=== PATIENT | male | born 1975 | race Two or more races ===

== ENCOUNTER 2022-12-07 20:57 | Inpatient (IN) | payer MEDICAID, SELFPAY ==
--- NOTE | ~2022-12-07 | XR_ITS ---
EXAMINATION: XR CHEST CLINICAL INFORMATION: Shortness of breath with rhonchi COMPARISON: January 28, 2019 TECHNIQUE: AP portable view of the chest was obtained. FINDINGS: No significant abnormality is noted involving the heart, lungs, mediastinum, bony thorax or soft tissues. XR/XR chest 1V IMPRESSION: No acute disease.
[2022-12-07 21:30] VITALS: BMI 25.8
[2022-12-07 22:31] LABS: Glucose, Whole Blood 139 mg/dL (60-115)
[2022-12-07] MEDS: hydrOXYzine HCL 25 MG TABLET PO (23:26)
[2022-12-07] MEDS: traZODone HCL 50 MG TABLET PO (23:26)
[2022-12-07] MEDS: Nicotine Polacrilex 2 MG GUM 4 MG BUCCAL (23:29)
[2022-12-08] MEDS: traZODone HCL 50 MG TABLET PO ×2 (00:25→20:35)
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
[2022-12-08 08:03] LABS: Glucose, Whole Blood 113 mg/dL (60-115)
[2022-12-08] MEDS: Folic Acid 1 MG TABLET PO (08:43)
[2022-12-08] MEDS: Nicotine 21 MG PATCH.TD24 TRANSDERMA (08:43)
[2022-12-08] MEDS: Multivitamin TABLET 1 TAB PO (08:44)
[2022-12-08] MEDS: Thiamine HCL 100 MG TABLET PO (08:44)
[2022-12-08 09:00] LABS: Alanine Aminotransferase 40 U/L (0-40); Albumin Level 3.9 g/dL (3.5-5.0); Alkaline Phosphatase 100 U/L (39-117); Anion Gap 13 (12-20); Aspartate Amino Transferase 25 U/L (5-37); Bilirubin Total 0.4 mg/dL (0.0-1.0); Blood Urea Nitrogen 18 mg/dL (9-16); Calcium 9.3 mg/dL (8.4-10.2); Carbon Dioxide 28 mmol/L (22-29); Chloride 103 mmol/L (96-108); Creatinine Clr Calc Pharmacy 93.5; Estimated Glomerular Filt Rate > 60; Glucose Fasting 102 mg/dL (60-99); Potassium 4.6 mmol/L (3.3-5.1); Sodium 139 mmol/L (135-145); Total Protein 6.8 g/dL (6.5-8.0)
[2022-12-08] MEDS: methADONE HCl 20 MG/2 ML ORAL.CONC 70 MG PO (09:28)
[2022-12-08 09:48] VITALS: BP 136/87; PULSE 71; RESP 18; TEMP 36.8; O2SAT 100
--- NOTE | 2022-12-08 12:13 | HO.PM.IMCN ---
History of Present Illness Data of Consult Service Date: 12/08/22 Requesting physician: Lizette Morrell Primary Care Provider: Montserrat Chen MD HPI Reason for consult: medical H&P 47 year old male with history of insulin dependent type 2 diabetes, htn, polysubstance abuse, hx treated hepatitis c, latent tuberculosis treated with isoniazid, migraines, and depression/anxiety who is a current 0.5ppd cigarette smoker admitted to psychiatry with consult placed to hospitalist service for medical H&P. Last inh heroin and cocaine use was 3 days ago. He is reporting h/a, lightheadedness, and diffuse pain. He is on methadone 70mg. He is also reporting occasional nonproductive cough and shortness of breath, states this has been long standing. No fevers, chills, sore throat, congestion, chest pain. No sick contacts. No history asthma/copd known. Review of Systems Review of Systems: Yes all other systems are reviewed and are negative [facility] Medical History History of hepatitis C History of latent tuberculosis HTN (hypertension) Type 2 diabetes mellitus Social History Household Members: None Housing: Apartment Do you presently have visiting nurse or other home services: No (I rent a room in a house) Patient Tobacco Use Status: Current everyday Tobacco user Tobacco use type: Cigarette Cigarette Packs Per Day: 1 Cigarettes Per Day: 20 Smoked in Last 30 Days: Yes e-Cigarette/Vaping Use: Never Used Patient Interested in Nicotine Replacement: Yes Patient Given Instructions on How to Stop Smoking: Yes (he is intrested in smoking cessation) Date Education Initiated: 12/07/22 Second Hand Smoke Exposure: Yes Use of substances other than those prescribed or required for medical reasons: Yes Substance Use Type: Crack/Cocaine, Heroin, IV Drugs, Marijuana, Other and Caffiene Substance Use Type Other:: benzos Substance Use Frequency: Daily Last Used Substance: Days (ago) Currently Displaying Signs/Symptoms of Drug Intoxication Withdrawal: Yes Any prior treatment program specific to substance use: Yes ([facility] 70 mg daily) Have you been hit, kicked, punched, or otherwise hurt by someone within the past year? If so, by whom?: No Do you feel safe in your current relationship?: No Current Relationship Is there a partner from a previous relationship who is making you feel unsafe now?: No Are you made to feel afraid or neglected: No Advance Directives: No Advance Directives Information Provided: No Do you have thoughts of harming others: None Do you have a plan to hurt others: No Plan Recently lost weight without trying: Yes How much weight loss: 24-33 pounds Eating poorly because of decreased appetite: Yes Nutrition screen score: 6 Poor oral hygiene: No service: No Sexual orientation: Straight/Heterosexual Meds Allergies Allergy/AdvReac Type Severity Reaction Status Date / Time fish derived [FISH] Allergy Intermediate SWOLLEN Unverified 04/30/20 16:57 LIPS,ITCHY EYES quetiapine [Seroquel] Allergy Unknown Verified 02/18/19 00:00 fish Allergy Unknown Uncoded 02/18/19 00:00 Active Medications: Current Medications Acetaminophen (Acetaminophen 325 Mg Tablet) 650 mg PO Q6H PRN PRN Reason: Headache/Pain Mild Scale (1-3) Al Hydroxide/Mg Hydroxide (Magnesium Hydrox/Alum Hydrox 30 Ml Oral.Susp) 30 ml PO Q6H PRN PRN Reason: Heartburn/Nausea Folic Acid (Folic Acid 1 Mg Tablet) 1 mg PO DAILY [facility] Last Admin: 12/08/22 08:43 Dose: 1 mg Hydroxyzine HCl (Hydroxyzine Hcl 25 Mg Tablet) 25 mg PO Q6H PRN PRN Reason: Anxiety Last Admin: 12/07/22 23:26 Dose: 25 mg Insulin Human Lispro (Insulin Lispro 100 Unit/Ml 3 Ml Vial) 0 unit SUBCUT QIDAS [facility]; Protocol Last Admin: 12/08/22 08:45 Dose: Not Given Lorazepam (Lorazepam 1 Mg Tablet) 1 mg PO Q2H PRN PRN Reason: CIWA 6-10 Lorazepam (Lorazepam 1 Mg Tablet) 2 mg PO Q2H PRN PRN Reason: CIWA 11 and above Magnesium Hydroxide (Milk Of Magnesia 30 Ml Oral.Susp) 30 ml PO DAILY PRN PRN Reason: Constipation Methadone HCl (Methadone Hcl 20 Mg/2 Ml Oral.Conc) 70 mg PO DAILY [facility] Last Admin: 12/08/22 09:28 Dose: 70 mg Multivitamins/Vitamin C (Multivitamin Tablet) 1 tab PO DAILY [facility] Last Admin: 12/08/22 08:44 Dose: 1 tab Nicotine (Nicotine 21 Mg Patch.Td24) 21 mg TRANSDERMA DAILY [facility] Last Admin: 12/08/22 08:43 Dose: 21 mg Nicotine Polacrilex (Nicotine Polacrilex 2 Mg Gum) 4 mg BUCCAL Q2H PRN PRN Reason: Nicotine Cravings Last Admin: 12/07/22 23:29 Dose: 4 mg Thiamine HCl (Thiamine Hcl 100 Mg Tablet) 100 mg PO DAILY [facility] Last Admin: 12/08/22 08:44 Dose: 100 mg Trazodone HCl (Trazodone Hcl 50 Mg Tablet) 50 mg PO BEDTIME MRX1 PRN PRN Reason: Insomnia Last Admin: 12/08/22 00:25 Dose: 50 mg Home Medications Medication Instructions Recorded Confirmed Last Taken Type Descovy mg PO DAILY 12/08/22 Unknown History Levemir FlexPen 30 units BIDAC 12/08/22 12/08/22 Unknown History Vitamin B-6 PO DAILY 12/08/22 Unknown History metformin 1,000 mg PO DAILY 12/08/22 12/08/22 Unknown History Physical Exam Vital Signs and Narrative: Vital Signs: Last Vital Signs Temp 98.3 F 12/08/22 09:48 Pulse 71 12/08/22 09:48 Resp 18 12/08/22 09:48 BP 136/87 12/08/22 09:48 Pulse Ox 100 12/08/22 09:48 O2 Del Method Room Air 12/08/22 09:48 BMI result Body Mass Index 25.8 Constitutional - Awake and Alert, No apparent distress Eyes - PERRLA, EOMI Cardiovascular - S1S2, RRR, No edema Respiratory - Normal lung expansion, Normal respiratory effort, No respiratory distress, diffuse rhonchi and expiratory wheezing bilaterally Gastrointestinal - NT / ND; +BS; No rebound or guarding Extremities - no calf tenderness bilaterally, no swelling Musculoskeletal - Normal inspection, normal ROM Skin - Warm/Dry Neurological - Alert & oriented x3, CN II-XII in tact, 5/5 strength BUE and BLE Psychological - Appropriate affect Results Labs 12/08/22 08:21 Labs: Laboratory Results - last 24 hr 12/07/22 12/08/22 12/08/22 22:27 07:58 08:21 Anion Gap 13 Estim Creat Clear Calc 93.5 Estimated GFR > 60 POC Glucose 139 H 113 Fasting Glucose 102 H Calcium 9.3 Total Bilirubin 0.4 AST 25 ALT 40 Alkaline Phosphatase 100 Total Protein 6.8 Albumin 3.9 Assessment and Plan (1) Routine medical exam: Status: Acute Plan 47 year old male with history of insulin dependent type 2 diabetes, htn, polysubstance abuse, hx treated hepatitis c, latent tuberculosis treated with isoniazid, migraines, and depression/anxiety who is a current 0.5ppd cigarette smoker admitted to psychiatry with consult placed to hospitalist service for medical H&P. #Mood disorder/psychosis -plan per psychiatry #Substance use -plan per psychiatry #Headaches/migraine -tylenol, fioricet prn #Type 2 diabetes- controlled -continue home metformin and basal insulin -check poc's, diabetic diet recommened, humalog on sliding scale #Shortness of breath/cough -Longstanding. Suspect undiagnosed asthma vs COPD (smoking history) -Viral resp panel ordered -Check CXR -Albuterol prn -symptomatic management -outpt follow for PFTs #HTN -BP reasonably controlled, continue monitoring #HIV prophylaxis -Has not seen Dr. Lebron in [place] since last year -Pt denies taking descovy at this time. Will hold medication and he can follow up outpt. Will continue following for results. Time Spent With Patient Time: Total time managing care of this patient today ____ minutes.
[2022-12-08 12:15] LABS: Glucose, Whole Blood 127 mg/dL (60-115)
[2022-12-08 12:16] VITALS: BMI 26.1
[2022-12-08] MEDS: LORazepam 1 MG TABLET PO ×2 (12:54→16:38)
[2022-12-08] MEDS: Acetaminophen 325 MG TABLET 650 MG PO (12:57)
[2022-12-08] MEDS: HaloperidoL 5 MG TABLET PO ×2 (13:12→20:35)
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
[2022-12-08 15:04] VITALS: BP 137/87; PULSE 80; RESP 18; O2SAT 98
[2022-12-08] MEDS: cloNIDine HCL 0.1 MG TABLET PO ×2 (15:05→20:35)
[2022-12-08 17:30] LABS: Glucose, Whole Blood 113 mg/dL (60-115)
[2022-12-08 20:31] LABS: Glucose, Whole Blood 130 mg/dL (60-115)
[2022-12-08] MEDS: Insulin Glargine,Hum.rec.anlog 100 UNIT/ML 10 ML VIAL 21 UNIT SUBCUT (20:33)
[2022-12-08] MEDS: LORazepam 1 MG TABLET 2 MG PO (20:35)
[2022-12-08] MEDS: hydrOXYzine HCL 25 MG TABLET PO (20:36)
[2022-12-08 20:41] VITALS: BP 140/95; PULSE 74; RESP 16; TEMP 36.6; O2SAT 100
[2022-12-09] MEDS: Nicotine 21 MG PATCH.TD24 TRANSDERMA (08:20)
[2022-12-09] MEDS: cloNIDine HCL 0.1 MG TABLET PO ×2 (08:21→14:28)
[2022-12-09] MEDS: Folic Acid 1 MG TABLET PO (08:21)
[2022-12-09] MEDS: HaloperidoL 5 MG TABLET PO ×3 (08:21→21:46)
[2022-12-09] MEDS: Insulin Glargine,Hum.rec.anlog 100 UNIT/ML 10 ML VIAL 21 UNIT SUBCUT ×2 (08:22→21:48)
[2022-12-09] MEDS: methADONE HCl 20 MG/2 ML ORAL.CONC 70 MG PO (08:22)
[2022-12-09] MEDS: Multivitamin TABLET 1 TAB PO (08:22)
[2022-12-09] MEDS: Thiamine HCL 100 MG TABLET PO (08:22)
[2022-12-09] MEDS: metFORMIN HCl ER 500 MG TAB.ER.24H 1000 MG PO (08:22)
[2022-12-09 08:31] LABS: Glucose, Whole Blood 134 mg/dL (60-115)
[2022-12-09 08:36] VITALS: BP 165/90; PULSE 56; RESP 18; TEMP 36.5; O2SAT 98
[2022-12-09 11:18] LABS: Adenovirus PCR Not Detected (Not Detect.); Bordetella parapertussis PCR Not Detected (Not Detect.); Bordetella pertussis PCR Not Detected (Not Detect.); Chlamydia pneumoniae PCR Not Detected (Not Detect.); Coronavirus 229E PCR Not Detected (Not Detect.); Coronavirus HKU1 PCR Not Detected (Not Detect.); Coronavirus NL63 PCR Not Detected (Not Detect.); Coronavirus OC43 PCR Not Detected (Not Detect.); Human metapneumovirus PCR Detected (Not Detect.); Influenza A PCR Not Detected (Not Detect.); Influenza B PCR Not Detected (Not Detect.); Mycoplasma pneumoniae PCR Not Detected (Not Detect.); Parainfluenza 1 PCR Not Detected (Not Detect.); Rhino/Enterovirus PCR Not Detected (Not Detect.); SARS-CoV-2 PCR Not Detected (Not Detect.)
[2022-12-09 11:19] LABS: Parainfluenza 2 PCR Not Detected (Not Detect.); Parainfluenza 3 PCR Not Detected (Not Detect.); Parainfluenza 4 PCR Not Detected (Not Detect.); RSV PCR Not Detected (Not Detect.)
[2022-12-09 13:29] LABS: Glucose, Whole Blood 134 mg/dL (60-115)
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
[2022-12-09 17:29] LABS: Glucose, Whole Blood 114 mg/dL (60-115)
[2022-12-09] MEDS: Acetaminophen 325 MG TABLET 975 MG PO (17:51)
[2022-12-09] MEDS: Albuterol Sulfate 90 MCG 8 GM INHALER 2 PUFF INHALE (17:52)
[2022-12-09 21:20] VITALS: BP 143/87; PULSE 88; RESP 18; TEMP 36.1; O2SAT 97
[2022-12-09 21:33] LABS: Glucose, Whole Blood 183 mg/dL (60-115)
[2022-12-09] MEDS: traZODone HCL 50 MG TABLET PO ×2 (21:46→23:09)
[2022-12-09] MEDS: cloNIDine HCL 0.2 MG TABLET PO (21:46)
[2022-12-09] MEDS: Insulin Lispro 100 UNIT/ML 3 ML VIAL SUBCUT (21:48)
[2022-12-09] MEDS: hydrOXYzine HCL 25 MG TABLET PO (23:09)
[2022-12-10 08:38] LABS: Glucose, Whole Blood 193 mg/dL (60-115)
[2022-12-10 09:10] VITALS: BP 139/83; PULSE 75; RESP 18; TEMP 36.6; O2SAT 99
[2022-12-10] MEDS: metFORMIN HCl ER 500 MG TAB.ER.24H 1000 MG PO (09:21)
[2022-12-10] MEDS: Multivitamin TABLET 1 TAB PO (09:22)
[2022-12-10] MEDS: HaloperidoL 5 MG TABLET PO ×3 (09:22→21:16)
[2022-12-10] MEDS: Folic Acid 1 MG TABLET PO (09:22)
[2022-12-10] MEDS: Thiamine HCL 100 MG TABLET PO (09:22)
[2022-12-10] MEDS: Nicotine 21 MG PATCH.TD24 TRANSDERMA (09:23)
[2022-12-10] MEDS: cloNIDine HCL 0.1 MG TABLET PO ×2 (09:23→14:47)
[2022-12-10] MEDS: methADONE HCl 20 MG/2 ML ORAL.CONC 70 MG PO (09:24)
[2022-12-10] MEDS: Insulin Glargine,Hum.rec.anlog 100 UNIT/ML 10 ML VIAL 21 UNIT SUBCUT ×2 (09:36→21:19)
[2022-12-10] MEDS: Insulin Lispro 100 UNIT/ML 3 ML VIAL SUBCUT ×3 (09:37→21:19)
--- NOTE | 2022-12-10 11:06 | PC.NURSE ---
Erik consulted via [place] Text re: duration of isolation/droplet precautions. Per Nate Marroquin, precautions only need to be maintained for duration of symptoms. Patient denies any symptoms at this time. Precautions resolved, MD notified.
[2022-12-10 12:58] LABS: Glucose, Whole Blood 169 mg/dL (60-115)
[2022-12-10] MEDS: Acetaminophen 325 MG TABLET 975 MG PO (12:59)
--- NOTE | 2022-12-10 13:31 | PC.NURSE ---
Patient scoring very low on CIWA score, Dr. Muse notified, TAYA d/c per .
[2022-12-10 14:40] VITALS: BP 125/83; PULSE 81; RESP 20; O2SAT 99
--- NOTE | 2022-12-10 16:16 | HO.PSYCHPN ---
Subjective Subjective Date of Service: 12/10/22 Reason For Visit: Stimulant use d/o, unspecified depressive d/o Interim History: calm, cooperative. reports ongoing AH, mild POLK. sleep not great, agrees to increase HS clonidine to 0.3 mg. per staff, off infection precautions. anx 7. mild POLK. reporting AVH. slept yesterday and then again overnight. FSBS 193. Mental Status Exam Mental Status Exam Narrative: calm, cooperative. tattoos on neck and arms. dressed in hospital attire. cooperative. speech nml loudness, decr amount, incr latency. thoughts linear and logical without evidence of delusions or paranoia. affect constricted, normo-intense, non-labile. mood anxious and depressed. endorses AH. no SI/HI/VH expressed. Diagnostics Vital Signs (24Hr): Vital Signs - 24 hr 12/09/22 21:20 12/10/22 09:10 12/10/22 14:40 Temperature 97.0 F 97.8 F Pulse Rate 88 75 81 Respiratory Rate 18 18 20 Blood Pressure 143/87 H 139/83 125/83 Pulse Oximetry 97 99 99 Oxygen Delivery Method Room Air Room Air Room Air BMI result Body Mass Index 26.1 Labs 12/08/22 08:21 Labs: Laboratory Results - last 48 hr 12/08/22 12/08/22 12/08/22 16:25 17:25 20:25 POC Glucose 113 130 H Respiratory Panel Taylor See Note Adenovirus (Rapid PCR) Not Detected B.pert (TEM-PCR) Not Detected B.parapertussis DNA PCR Not Detected C. pneumoniae DNA (PCR) Not Detected Coronavirus OC43 (PCR) Not Detected Coronavirus HKU1 (PCR) Not Detected Coronavirus 229E (PCR) Not Detected Coronavirus NL63 (PCR) Not Detected Human Metapneumovir PCR Detected A Influenza A (RT-PCR) Not Detected Influenza B (RT-PCR) Not Detected M. pneumoniae (PCR) Not Detected Parainfluenza 1 (PCR) Not Detected Parainfluenza 2 (PCR) Not Detected Parainfluenza 3 (PCR) Not Detected Parainfluenza 4 (PCR) Not Detected RSV (PCR) Not Detected Entero/Rhino (PCR) Not Detected SARS-CoV-2 RNA (RT-PCR) Not Detected 12/09/22 12/09/22 12/09/22 08:19 13:24 17:25 POC Glucose 134 H 134 H 114 Respiratory Panel Taylor Adenovirus (Rapid PCR) B.pert (TEM-PCR) B.parapertussis DNA PCR C. pneumoniae DNA (PCR) Coronavirus OC43 (PCR) Coronavirus HKU1 (PCR) Coronavirus 229E (PCR) Coronavirus NL63 (PCR) Human Metapneumovir PCR Influenza A (RT-PCR) Influenza B (RT-PCR) M. pneumoniae (PCR) Parainfluenza 1 (PCR) Parainfluenza 2 (PCR) Parainfluenza 3 (PCR) Parainfluenza 4 (PCR) RSV (PCR) Entero/Rhino (PCR) SARS-CoV-2 RNA (RT-PCR) 12/09/22 12/10/22 12/10/22 21:24 08:33 12:54 POC Glucose 183 H 193 H 169 H Respiratory Panel Taylor Adenovirus (Rapid PCR) B.pert (TEM-PCR) B.parapertussis DNA PCR C. pneumoniae DNA (PCR) Coronavirus OC43 (PCR) Coronavirus HKU1 (PCR) Coronavirus 229E (PCR) Coronavirus NL63 (PCR) Human Metapneumovir PCR Influenza A (RT-PCR) Influenza B (RT-PCR) M. pneumoniae (PCR) Parainfluenza 1 (PCR) Parainfluenza 2 (PCR) Parainfluenza 3 (PCR) Parainfluenza 4 (PCR) RSV (PCR) Entero/Rhino (PCR) SARS-CoV-2 RNA (RT-PCR) Imaging Radiology Impressions: ITS Impressions Chest X-Ray 12/08/22 14:15 IMPRESSION: No acute disease. Medications Medications Current Medications Acetaminophen (Acetaminophen 325 Mg Tablet) 975 mg PO Q6H PRN PRN Reason: Headache/Pain Mild Scale (1-3) Last Admin: 12/10/22 12:59 Dose: 975 mg Al Hydroxide/Mg Hydroxide (Magnesium Hydrox/Alum Hydrox 30 Ml Oral.Susp) 30 ml PO Q6H PRN PRN Reason: Heartburn/Nausea Albuterol Sulfate (Albuterol Sulfate 90 Mcg 8 Gm Inhaler) 2 puff INHALE RQ4H PRN PRN Reason: Shortness of Breath/Wheezing Last Admin: 12/09/22 17:52 Dose: 2 puff Clonidine HCl (Clonidine Hcl 0.1 Mg Tablet) 0.1 mg PO BID@0900,1500 [facility]; Protocol Last Admin: 12/10/22 14:47 Dose: 0.1 mg Clonidine HCl (Clonidine Hcl 0.1 Mg Tablet) 0.3 mg PO BEDTIME [facility]; Protocol Folic Acid (Folic Acid 1 Mg Tablet) 1 mg PO DAILY [facility] Last Admin: 12/10/22 09:22 Dose: 1 mg Haloperidol (Haloperidol 5 Mg Tablet) 5 mg PO TID PRN PRN Reason: psychotic symptoms Last Admin: 12/10/22 12:59 Dose: 5 mg Haloperidol (Haloperidol 5 Mg Tablet) 5 mg PO BID [facility] Last Admin: 12/10/22 09:22 Dose: 5 mg Hydroxyzine HCl (Hydroxyzine Hcl 25 Mg Tablet) 25 mg PO Q6H PRN PRN Reason: Anxiety Last Admin: 12/09/22 23:09 Dose: 25 mg Insulin Glargine (Insulin Glargine,Hum.Rec.Anlog 100 Unit/Ml 10 Ml Vial) 21 unit SUBCUT BID [facility] Last Admin: 12/10/22 09:36 Dose: 21 unit Insulin Human Lispro (Insulin Lispro 100 Unit/Ml 3 Ml Vial) 0 unit SUBCUT QIDACHS [facility]; Protocol Last Admin: 12/10/22 13:13 Dose: 2 unit Lorazepam (Lorazepam 1 Mg Tablet) 1 mg PO Q2H PRN PRN Reason: CIWA 6-10 Last Admin: 12/08/22 16:38 Dose: 1 mg Lorazepam (Lorazepam 1 Mg Tablet) 2 mg PO Q2H PRN PRN Reason: CIWA 11 and above Last Admin: 12/08/22 20:35 Dose: 2 mg Magnesium Hydroxide (Milk Of Magnesia 30 Ml Oral.Susp) 30 ml PO DAILY PRN PRN Reason: Constipation Metformin HCl (Metformin Hcl Er 500 Mg Tab.Er.24h) 1,000 mg PO DAILY [facility] Last Admin: 12/10/22 09:21 Dose: 1,000 mg Methadone HCl (Methadone Hcl 20 Mg/2 Ml Oral.Conc) 70 mg PO DAILY [facility] Last Admin: 12/10/22 09:24 Dose: 70 mg Multivitamins/Vitamin C (Multivitamin Tablet) 1 tab PO DAILY [facility] Last Admin: 12/10/22 09:22 Dose: 1 tab Nicotine (Nicotine 21 Mg Patch.Td24) 21 mg TRANSDERMA DAILY [facility] Last Admin: 12/10/22 09:23 Dose: 21 mg Nicotine Polacrilex (Nicotine Polacrilex 2 Mg Gum) 4 mg BUCCAL Q2H PRN PRN Reason: Nicotine Cravings Last Admin: 12/07/22 23:29 Dose: 4 mg Thiamine HCl (Thiamine Hcl 100 Mg Tablet) 100 mg PO DAILY [facility] Last Admin: 12/10/22 09:22 Dose: 100 mg Trazodone HCl (Trazodone Hcl 50 Mg Tablet) 50 mg PO BEDTIME MRX1 PRN PRN Reason: Insomnia Last Admin: 12/09/22 23:09 Dose: 50 mg Allergies Allergies Allergy/AdvReac Type Severity Reaction Status Date / Time fish derived [FISH] Allergy Intermediate SWOLLEN Unverified 04/30/20 16:57 LIPS,ITCHY EYES quetiapine [Seroquel] Allergy Unknown Verified 02/18/19 00:00 fish Allergy Unknown Uncoded 02/18/19 00:00 Assessment & Plan Assessment & Plan (1) Polysubstance use disorder: Status: Acute Code(s): F19.90 - Other psychoactive substance use, unspecified, uncomplicated (2) Depressive disorder: Status: Acute Code(s): F32.A - Depression, unspecified Plan 12/08: start haldol 5 mg BID with PRN dosing available. start clonidine 0.1 TID. 12/09: increase HS clonidine to 0.2 mg for sleep. encouraged to use PRN haldol dosing. 12/10: increase HS clonidine to 0.3 mg for sleep. encouraged to use PRN haldol dosing. Reason for continued inpatient stay Substantial Risk for: harm to self, inability to function and rapid decompensation Time Spent With Patient Time: Total time managing care of this patient today ____ minutes.
[2022-12-10 17:45] LABS: Glucose, Whole Blood 148 mg/dL (60-115)
[2022-12-10 21:05] VITALS: BP 137/86; PULSE 75; RESP 18; TEMP 36.1; O2SAT 99
[2022-12-10 21:12] LABS: Glucose, Whole Blood 196 mg/dL (60-115)
[2022-12-10] MEDS: traZODone HCL 50 MG TABLET PO (21:16)
[2022-12-10] MEDS: cloNIDine HCL 0.1 MG TABLET 0.3 MG PO (21:16)
[2022-12-10] MEDS: hydrOXYzine HCL 25 MG TABLET PO ×2 (21:16→23:02)
[2022-12-11 08:25] VITALS: BP 114/67; PULSE 70; RESP 18; TEMP 36.7; O2SAT 98
[2022-12-11 08:25] LABS: Glucose, Whole Blood 176 mg/dL (60-115)
[2022-12-11] MEDS: Multivitamin TABLET 1 TAB PO (08:34)
[2022-12-11] MEDS: cloNIDine HCL 0.1 MG TABLET PO ×2 (08:34→15:04)
[2022-12-11] MEDS: Thiamine HCL 100 MG TABLET PO (08:34)
[2022-12-11] MEDS: HaloperidoL 5 MG TABLET PO ×4 (08:35→23:23)
[2022-12-11] MEDS: Folic Acid 1 MG TABLET PO (08:35)
[2022-12-11] MEDS: metFORMIN HCl ER 500 MG TAB.ER.24H 1000 MG PO (08:35)
[2022-12-11] MEDS: methADONE HCl 20 MG/2 ML ORAL.CONC 70 MG PO (08:36)
[2022-12-11] MEDS: Insulin Lispro 100 UNIT/ML 3 ML VIAL SUBCUT (09:10)
[2022-12-11] MEDS: Nicotine 21 MG PATCH.TD24 TRANSDERMA (09:10)
[2022-12-11] MEDS: Insulin Glargine,Hum.rec.anlog 100 UNIT/ML 10 ML VIAL 21 UNIT SUBCUT ×2 (09:11→21:09)
[2022-12-11 12:08] LABS: Glucose, Whole Blood 91 mg/dL (60-115)
[2022-12-11] MEDS: hydrOXYzine HCL 25 MG TABLET PO ×2 (12:22→23:23)
--- NOTE | 2022-12-11 16:24 | P.PNPSI_ITS ---
Subjective Subjective Date of Service: 12/11/22 Reason For Visit: Stimulant use d/o, unspecified depressive d/o Interim History: pt reports ongoing AH, flashes. mood a little better and POLK improved. c/o anxiety. agrees to increase scheduled haldol to 5 mg TID. c/o MNA. agrees to start trazodone 100 at HS. per staff, racing thoughts. sleeping improving. anx/dep 12/21. +AH. FSBS 176, 91. Mental Status Exam Mental Status Exam Narrative: calm, cooperative. tattoos on neck and arms. dressed in hospital attire. cooperative. speech nml loudness, decr amount, incr latency. thoughts linear and logical without evidence of delusions or paranoia. affect constricted, normo-intense, non-labile. mood anxious and depressed, but a little better. endorses AH. no SI/HI/VH expressed. Diagnostics Vital Signs (24Hr): Vital Signs - 24 hr 12/10/22 21:05 12/11/22 08:25 Temperature 97.0 F 98.1 F Pulse Rate 75 70 Respiratory Rate 18 18 Blood Pressure 137/86 114/67 Pulse Oximetry 99 98 Oxygen Delivery Method Room Air Room Air BMI result Body Mass Index 26.1 Labs 12/08/22 08:21 Labs: Laboratory Results - last 48 hr 12/09/22 12/09/22 12/10/22 17:25 21:24 08:33 POC Glucose 114 183 H 193 H 12/10/22 12/10/22 12/10/22 12:54 17:40 21:06 POC Glucose 169 H 148 H 196 H 12/11/22 12/11/22 08:21 12:04 POC Glucose 176 H 91 Imaging Radiology Impressions: ITS Impressions Chest X-Ray 12/08/22 14:15 IMPRESSION: No acute disease. Medications Medications Current Medications Acetaminophen (Acetaminophen 325 Mg Tablet) 975 mg PO Q6H PRN PRN Reason: Headache/Pain Mild Scale (1-3) Last Admin: 12/10/22 12:59 Dose: 975 mg Al Hydroxide/Mg Hydroxide (Magnesium Hydrox/Alum Hydrox 30 Ml Oral.Susp) 30 ml PO Q6H PRN PRN Reason: Heartburn/Nausea Albuterol Sulfate (Albuterol Sulfate 90 Mcg 8 Gm Inhaler) 2 puff INHALE RQ4H PRN PRN Reason: Shortness of Breath/Wheezing Last Admin: 12/09/22 17:52 Dose: 2 puff Clonidine HCl (Clonidine Hcl 0.1 Mg Tablet) 0.1 mg PO BID@0900,1500 [facility]; Protocol Last Admin: 12/11/22 15:04 Dose: 0.1 mg Clonidine HCl (Clonidine Hcl 0.1 Mg Tablet) 0.3 mg PO BEDTIME [facility]; Protocol Last Admin: 12/10/22 21:16 Dose: 0.3 mg Folic Acid (Folic Acid 1 Mg Tablet) 1 mg PO DAILY [facility] Last Admin: 12/11/22 08:35 Dose: 1 mg Haloperidol (Haloperidol 5 Mg Tablet) 5 mg PO TID PRN PRN Reason: psychotic symptoms Last Admin: 12/11/22 13:34 Dose: 5 mg Haloperidol (Haloperidol 5 Mg Tablet) 5 mg PO TID [facility] Hydroxyzine HCl (Hydroxyzine Hcl 25 Mg Tablet) 25 mg PO Q6H PRN PRN Reason: Anxiety Last Admin: 12/11/22 12:22 Dose: 25 mg Insulin Glargine (Insulin Glargine,Hum.Rec.Anlog 100 Unit/Ml 10 Ml Vial) 21 unit SUBCUT BID [facility] Last Admin: 12/11/22 09:11 Dose: 21 unit Insulin Human Lispro (Insulin Lispro 100 Unit/Ml 3 Ml Vial) 0 unit SUBCUT QIDACHS [facility]; Protocol Last Admin: 12/11/22 12:25 Dose: Not Given Lorazepam (Lorazepam 1 Mg Tablet) 1 mg PO Q2H PRN PRN Reason: CIWA 6-10 Last Admin: 12/08/22 16:38 Dose: 1 mg Lorazepam (Lorazepam 1 Mg Tablet) 2 mg PO Q2H PRN PRN Reason: CIWA 11 and above Last Admin: 12/08/22 20:35 Dose: 2 mg Magnesium Hydroxide (Milk Of Magnesia 30 Ml Oral.Susp) 30 ml PO DAILY PRN PRN Reason: Constipation Metformin HCl (Metformin Hcl Er 500 Mg Tab.Er.24h) 1,000 mg PO DAILY [facility] Last Admin: 12/11/22 08:35 Dose: 1,000 mg Methadone HCl (Methadone Hcl 20 Mg/2 Ml Oral.Conc) 70 mg PO DAILY [facility] Last Admin: 12/11/22 08:36 Dose: 70 mg Multivitamins/Vitamin C (Multivitamin Tablet) 1 tab PO DAILY [facility] Last Admin: 12/11/22 08:34 Dose: 1 tab Nicotine (Nicotine 21 Mg Patch.Td24) 21 mg TRANSDERMA DAILY [facility] Last Admin: 12/11/22 09:10 Dose: 21 mg Nicotine Polacrilex (Nicotine Polacrilex 2 Mg Gum) 4 mg BUCCAL Q2H PRN PRN Reason: Nicotine Cravings Last Admin: 12/07/22 23:29 Dose: 4 mg Thiamine HCl (Thiamine Hcl 100 Mg Tablet) 100 mg PO DAILY [facility] Last Admin: 12/11/22 08:34 Dose: 100 mg Trazodone HCl (Trazodone Hcl 50 Mg Tablet) 50 mg PO BEDTIME MRX1 PRN PRN Reason: Insomnia Last Admin: 12/10/22 21:16 Dose: 50 mg Trazodone HCl (Trazodone Hcl 100 Mg Tablet) 100 mg PO BEDTIME [facility] Allergies Allergies Allergy/AdvReac Type Severity Reaction Status Date / Time fish derived [FISH] Allergy Intermediate SWOLLEN Unverified 04/30/20 16:57 LIPS,ITCHY EYES quetiapine [Seroquel] Allergy Unknown Verified 02/18/19 00:00 fish Allergy Unknown Uncoded 02/18/19 00:00 Assessment & Plan Assessment & Plan (1) Polysubstance use disorder: Status: Acute Code(s): F19.90 - Other psychoactive substance use, unspecified, uncomplicated (2) Depressive disorder: Status: Acute Code(s): F32.A - Depression, unspecified Plan 12/08: start haldol 5 mg BID with PRN dosing available. start clonidine 0.1 TID. 12/09: increase HS clonidine to 0.2 mg for sleep. encouraged to use PRN haldol dosing. 12/10: increase HS clonidine to 0.3 mg for sleep. encouraged to use PRN haldol dosing. 12/11: increase haldol to 5 TID. start trazodone 100. c/o AH, flashes, insomnia with multiple MNA. Reason for continued inpatient stay Substantial Risk for: harm to self, inability to function and rapid decompensation Time Spent With Patient Time: Total time managing care of this patient today ____ minutes.
[2022-12-11 17:14] LABS: Glucose, Whole Blood 117 mg/dL (60-115)
[2022-12-11] MEDS: Acetaminophen 325 MG TABLET 975 MG PO (20:07)
[2022-12-11 20:49] LABS: Glucose, Whole Blood 135 mg/dL (60-115)
[2022-12-11 21:00] VITALS: BP 141/90; PULSE 69; RESP 16; TEMP 36.2; O2SAT 100
[2022-12-11] MEDS: cloNIDine HCL 0.1 MG TABLET 0.3 MG PO (21:07)
[2022-12-11] MEDS: traZODone HCL 100 MG TABLET PO (21:08)
[2022-12-11] MEDS: traZODone HCL 50 MG TABLET PO (23:23)
[2022-12-12 08:01] VITALS: BP 149/91; PULSE 57; TEMP 36.3; O2SAT 100
[2022-12-12 08:18] LABS: Glucose, Whole Blood 173 mg/dL (60-115)
[2022-12-12] MEDS: methADONE HCl 20 MG/2 ML ORAL.CONC 70 MG PO (08:31)
[2022-12-12] MEDS: metFORMIN HCl ER 500 MG TAB.ER.24H 1000 MG PO (08:32)
[2022-12-12] MEDS: Folic Acid 1 MG TABLET PO (08:33)
[2022-12-12] MEDS: cloNIDine HCL 0.1 MG TABLET PO (08:33)
[2022-12-12] MEDS: Thiamine HCL 100 MG TABLET PO (08:33)
[2022-12-12] MEDS: Multivitamin TABLET 1 TAB PO (08:33)
[2022-12-12] MEDS: HaloperidoL 5 MG TABLET PO ×4 (08:34→19:44)
[2022-12-12] MEDS: Nicotine 21 MG PATCH.TD24 TRANSDERMA (08:36)
[2022-12-12] MEDS: Acetaminophen 325 MG TABLET 975 MG PO (08:37)
[2022-12-12] MEDS: Insulin Glargine,Hum.rec.anlog 100 UNIT/ML 10 ML VIAL 21 UNIT SUBCUT ×2 (09:08→21:19)
[2022-12-12] MEDS: Insulin Lispro 100 UNIT/ML 3 ML VIAL SUBCUT ×3 (09:08→21:20)
[2022-12-12 12:12] LABS: Glucose, Whole Blood 111 mg/dL (60-115)
[2022-12-12] MEDS: hydrOXYzine HCL 25 MG TABLET PO (12:42)
--- NOTE | 2022-12-12 13:40 | HO.PSYCHPN ---
Subjective Subjective Date of Service: 12/12/22 Reason For Visit: Stimulant use d/o, unspecified depressive d/o Interim History: calm, cooperative. endorses AH. in discussion, essentially describes them as anxious, trauma-related phenomena. agrees to approach of more aggressive Tx of anxiety. sleep improved but not great. agreeable to increase HS clonidine to 0.4 mg and daytime clonidine to 0.2 mg each. no hypotension, no Sx of the same. per staff, pleasant, cooperative. +AH. intermittent sleep. active, appropriate. anx 8, dep 6. +SI, no plan. Mental Status Exam Mental Status Exam Narrative: calm, cooperative. tattoos on neck and arms. dressed in hospital attire. cooperative. speech nml loudness, decr amount, incr latency. thoughts linear and logical without evidence of delusions or paranoia. affect constricted, normo-intense, non-labile. mood anxious and depressed, but a little better. endorses AH. no SI/HI/VH expressed. Diagnostics Vital Signs (24Hr): Vital Signs - 24 hr 12/11/22 21:00 12/12/22 08:01 Temperature 97.2 F 97.4 F Pulse Rate 69 57 Respiratory Rate 16 Blood Pressure 141/90 H 149/91 H Pulse Oximetry 100 100 Oxygen Delivery Method Room Air Room Air BMI result Body Mass Index 26.1 Labs 12/08/22 08:21 Labs: Laboratory Results - last 48 hr 12/10/22 12/10/22 12/11/22 17:40 21:06 08:21 POC Glucose 148 H 196 H 176 H 12/11/22 12/11/22 12/11/22 12:04 17:10 20:45 POC Glucose 91 117 H 135 H 12/12/22 12/12/22 08:15 12:08 POC Glucose 173 H 111 Imaging Radiology Impressions: ITS Impressions Chest X-Ray 12/08/22 14:15 IMPRESSION: No acute disease. Medications Medications Current Medications Acetaminophen (Acetaminophen 325 Mg Tablet) 975 mg PO Q6H PRN PRN Reason: Headache/Pain Mild Scale (1-3) Last Admin: 12/12/22 08:37 Dose: 975 mg Al Hydroxide/Mg Hydroxide (Magnesium Hydrox/Alum Hydrox 30 Ml Oral.Susp) 30 ml PO Q6H PRN PRN Reason: Heartburn/Nausea Albuterol Sulfate (Albuterol Sulfate 90 Mcg 8 Gm Inhaler) 2 puff INHALE RQ4H PRN PRN Reason: Shortness of Breath/Wheezing Last Admin: 12/09/22 17:52 Dose: 2 puff Clonidine HCl (Clonidine Hcl 0.2 Mg Tablet) 0.2 mg PO BID@0900,1500 [facility]; Protocol Clonidine HCl (Clonidine Hcl 0.2 Mg Tablet) 0.4 mg PO BEDTIME [facility]; Protocol Folic Acid (Folic Acid 1 Mg Tablet) 1 mg PO DAILY [facility] Last Admin: 12/12/22 08:33 Dose: 1 mg Haloperidol (Haloperidol 5 Mg Tablet) 5 mg PO TID PRN PRN Reason: psychotic symptoms Last Admin: 12/11/22 23:23 Dose: 5 mg Haloperidol (Haloperidol 5 Mg Tablet) 5 mg PO TID [facility] Last Admin: 12/12/22 08:34 Dose: 5 mg Hydroxyzine HCl (Hydroxyzine Hcl 25 Mg Tablet) 25 mg PO Q6H PRN PRN Reason: Anxiety Last Admin: 12/12/22 12:42 Dose: 25 mg Insulin Glargine (Insulin Glargine,Hum.Rec.Anlog 100 Unit/Ml 10 Ml Vial) 21 unit SUBCUT BID [facility] Last Admin: 12/12/22 09:08 Dose: 21 unit Insulin Human Lispro (Insulin Lispro 100 Unit/Ml 3 Ml Vial) 0 unit SUBCUT QIDACHS [facility]; Protocol Last Admin: 12/12/22 12:16 Dose: Not Given Magnesium Hydroxide (Milk Of Magnesia 30 Ml Oral.Susp) 30 ml PO DAILY PRN PRN Reason: Constipation Metformin HCl (Metformin Hcl Er 500 Mg Tab.Er.24h) 1,000 mg PO DAILY [facility] Last Admin: 12/12/22 08:32 Dose: 1,000 mg Methadone HCl (Methadone Hcl 20 Mg/2 Ml Oral.Conc) 70 mg PO DAILY [facility] Last Admin: 12/12/22 08:31 Dose: 70 mg Multivitamins/Vitamin C (Multivitamin Tablet) 1 tab PO DAILY [facility] Last Admin: 12/12/22 08:33 Dose: 1 tab Nicotine (Nicotine 21 Mg Patch.Td24) 21 mg TRANSDERMA DAILY [facility] Last Admin: 12/12/22 08:36 Dose: 21 mg Nicotine Polacrilex (Nicotine Polacrilex 2 Mg Gum) 4 mg BUCCAL Q2H PRN PRN Reason: Nicotine Cravings Last Admin: 12/07/22 23:29 Dose: 4 mg Thiamine HCl (Thiamine Hcl 100 Mg Tablet) 100 mg PO DAILY [facility] Last Admin: 12/12/22 08:33 Dose: 100 mg Trazodone HCl (Trazodone Hcl 50 Mg Tablet) 50 mg PO BEDTIME MRX1 PRN PRN Reason: Insomnia Last Admin: 12/11/22 23:23 Dose: 50 mg Trazodone HCl (Trazodone Hcl 100 Mg Tablet) 100 mg PO BEDTIME [facility] Last Admin: 12/11/22 21:08 Dose: 100 mg Allergies Allergies Allergy/AdvReac Type Severity Reaction Status Date / Time fish derived [FISH] Allergy Intermediate SWOLLEN Unverified 04/30/20 16:57 LIPS,ITCHY EYES quetiapine [Seroquel] Allergy Unknown Verified 02/18/19 00:00 fish Allergy Unknown Uncoded 02/18/19 00:00 Assessment & Plan Assessment & Plan (1) Polysubstance use disorder: Status: Acute Code(s): F19.90 - Other psychoactive substance use, unspecified, uncomplicated (2) Depressive disorder: Status: Acute Code(s): F32.A - Depression, unspecified Plan 12/08: start haldol 5 mg BID with PRN dosing available. start clonidine 0.1 TID. 12/09: increase HS clonidine to 0.2 mg for sleep. encouraged to use PRN haldol dosing. 12/10: increase HS clonidine to 0.3 mg for sleep. encouraged to use PRN haldol dosing. 12/11: increase haldol to 5 TID. start trazodone 100. c/o AH, flashes, insomnia with multiple MNA. 12/12: sleep better but not great. AH seem more trauma-related than psychotic. advance mgmt of anxiety: clonidine 0.3 mg HS increased to 0.4 mg HS, clonidine 0.1 mg BID increased to 0.2 mg BID. Reason for continued inpatient stay Substantial Risk for: inability to function and rapid decompensation Time Spent With Patient Time: Total time managing care of this patient today ____ minutes.
[2022-12-12 15:47] VITALS: BP 176/105; PULSE 60
[2022-12-12] MEDS: cloNIDine HCL 0.2 MG TABLET PO (15:49)
[2022-12-12 17:28] LABS: Glucose, Whole Blood 209 mg/dL (60-115)
[2022-12-12 18:06] VITALS: BP 163/97; PULSE 54
[2022-12-12] MEDS: cloNIDine HCL 0.2 MG TABLET 0.4 MG PO (19:44)
[2022-12-12 19:47] VITALS: BP 114/72; PULSE 97; RESP 18; TEMP 36.2; O2SAT 96
[2022-12-12 21:15] LABS: Glucose, Whole Blood 206 mg/dL (60-115)
[2022-12-12] MEDS: traZODone HCL 100 MG TABLET PO (21:19)
[2022-12-13] MEDS: hydrOXYzine HCL 25 MG TABLET PO ×2 (00:06→12:39)
[2022-12-13] MEDS: traZODone HCL 50 MG TABLET PO (00:06)
[2022-12-13 08:38] LABS: Glucose, Whole Blood 145 mg/dL (60-115)
[2022-12-13 09:07] VITALS: BP 107/76; PULSE 84; TEMP 36.5; O2SAT 100
[2022-12-13] MEDS: metFORMIN HCl ER 500 MG TAB.ER.24H 1000 MG PO (09:18)
[2022-12-13] MEDS: cloNIDine HCL 0.2 MG TABLET PO ×2 (09:19→14:06)
[2022-12-13] MEDS: Thiamine HCL 100 MG TABLET PO (09:19)
[2022-12-13] MEDS: Folic Acid 1 MG TABLET PO (09:19)
[2022-12-13] MEDS: Multivitamin TABLET 1 TAB PO (09:19)
[2022-12-13] MEDS: methADONE HCl 20 MG/2 ML ORAL.CONC 70 MG PO (09:20)
[2022-12-13] MEDS: HaloperidoL 5 MG TABLET PO ×6 (09:20→21:49)
[2022-12-13] MEDS: Insulin Glargine,Hum.rec.anlog 100 UNIT/ML 10 ML VIAL 21 UNIT SUBCUT ×2 (09:21→21:05)
[2022-12-13] MEDS: Nicotine 21 MG PATCH.TD24 TRANSDERMA (09:23)
[2022-12-13 12:36] LABS: Glucose, Whole Blood 211 mg/dL (60-115)
[2022-12-13] MEDS: Insulin Lispro 100 UNIT/ML 3 ML VIAL SUBCUT ×3 (13:15→21:05)
[2022-12-13 14:03] VITALS: BP 171/96; PULSE 63; RESP 18; TEMP 36.7; O2SAT 100
--- NOTE | 2022-12-13 15:12 | HO.PSYCHPN ---
Subjective Subjective Date of Service: 12/13/22 Reason For Visit: Stimulant use d/o, unspecified depressive d/o Interim History: reporting 3 nightmares overnight, wants clonidine dosing advanced during day as well as at night. planning for discharge . agrees to DC trazodone and start remeron instead due to disturbing dreams/nightmares. per staff, anxious on eves. dreams about demons. +AH but can't understand what they are saying. up and down several times in the night. Mental Status Exam Mental Status Exam Narrative: calm, cooperative. tattoos on neck and arms. dressed in street attire. cooperative. speech nml loudness, amount, latency. thoughts linear and logical without evidence of delusions or paranoia. affect constricted, normo-intense, non-labile. mood anxious and depressed, but a little better. endorses AH. no SI/HI/VH expressed. Diagnostics Vital Signs (24Hr): Vital Signs - 24 hr 12/12/22 15:47 12/12/22 18:06 12/12/22 19:47 Temperature 97.2 F Pulse Rate 60 54 97 Respiratory Rate 18 Blood Pressure 176/105 H 163/97 H 114/72 Pulse Oximetry 96 Oxygen Delivery Method Room Air 12/13/22 09:07 12/13/22 14:03 Temperature 97.7 F 98.0 F Pulse Rate 84 63 Respiratory Rate 18 Blood Pressure 107/76 171/96 H Pulse Oximetry 100 100 Oxygen Delivery Method Room Air Room Air BMI result Body Mass Index 26.1 Labs 12/08/22 08:21 Labs: Laboratory Results - last 48 hr 12/11/22 12/11/22 12/12/22 17:10 20:45 08:15 POC Glucose 117 H 135 H 173 H 12/12/22 12/12/22 12/12/22 12:08 17:24 21:11 POC Glucose 111 209 H 206 H 12/13/22 12/13/22 08:34 12:32 POC Glucose 145 H 211 H Imaging Radiology Impressions: ITS Impressions Chest X-Ray 12/08/22 14:15 IMPRESSION: No acute disease. Medications Medications Current Medications Acetaminophen (Acetaminophen 325 Mg Tablet) 975 mg PO Q6H PRN PRN Reason: Headache/Pain Mild Scale (1-3) Last Admin: 12/12/22 08:37 Dose: 975 mg Al Hydroxide/Mg Hydroxide (Magnesium Hydrox/Alum Hydrox 30 Ml Oral.Susp) 30 ml PO Q6H PRN PRN Reason: Heartburn/Nausea Albuterol Sulfate (Albuterol Sulfate 90 Mcg 8 Gm Inhaler) 2 puff INHALE RQ4H PRN PRN Reason: Shortness of Breath/Wheezing Last Admin: 12/09/22 17:52 Dose: 2 puff Clonidine HCl (Clonidine Hcl 0.1 Mg Tablet) 0.3 mg PO BID@0900,1500 [facility]; Protocol Last Admin: 12/13/22 14:28 Dose: Not Given Clonidine HCl (Clonidine Hcl 0.1 Mg Tablet) 0.5 mg PO BEDTIME [facility]; Protocol Folic Acid (Folic Acid 1 Mg Tablet) 1 mg PO DAILY [facility] Last Admin: 12/13/22 09:19 Dose: 1 mg Guaifenesin (Guaifenesin La 600 Mg Tab.Er.12h) 600 mg PO BID PRN PRN Reason: phlegm Haloperidol (Haloperidol 5 Mg Tablet) 5 mg PO TID PRN PRN Reason: psychotic symptoms Last Admin: 12/13/22 11:30 Dose: 5 mg Haloperidol (Haloperidol 5 Mg Tablet) 5 mg PO TID [facility] Last Admin: 12/13/22 14:06 Dose: 5 mg Hydroxyzine HCl (Hydroxyzine Hcl 25 Mg Tablet) 25 mg PO Q6H PRN PRN Reason: Anxiety Last Admin: 12/13/22 12:39 Dose: 25 mg Insulin Glargine (Insulin Glargine,Hum.Rec.Anlog 100 Unit/Ml 10 Ml Vial) 21 unit SUBCUT BID [facility] Last Admin: 12/13/22 09:21 Dose: 21 unit Insulin Human Lispro (Insulin Lispro 100 Unit/Ml 3 Ml Vial) 0 unit SUBCUT QIDACHS [facility]; Protocol Last Admin: 12/13/22 13:15 Dose: 4 unit Magnesium Hydroxide (Milk Of Magnesia 30 Ml Oral.Susp) 30 ml PO DAILY PRN PRN Reason: Constipation Metformin HCl (Metformin Hcl Er 500 Mg Tab.Er.24h) 1,000 mg PO DAILY [facility] Last Admin: 12/13/22 09:18 Dose: 1,000 mg Methadone HCl (Methadone Hcl 20 Mg/2 Ml Oral.Conc) 70 mg PO DAILY [facility] Last Admin: 12/13/22 09:20 Dose: 70 mg Mirtazapine (Mirtazapine 30 Mg Tablet) 30 mg PO BEDTIME DONY Mirtazapine (Mirtazapine 15 Mg Tablet) 15 mg PO BEDTIME PRN PRN Reason: insomnia Multivitamins/Vitamin C (Multivitamin Tablet) 1 tab PO DAILY [facility] Last Admin: 12/13/22 09:19 Dose: 1 tab Nicotine (Nicotine 21 Mg Patch.Td24) 21 mg TRANSDERMA DAILY [facility] Last Admin: 12/13/22 09:23 Dose: 21 mg Nicotine Polacrilex (Nicotine Polacrilex 2 Mg Gum) 4 mg BUCCAL Q2H PRN PRN Reason: Nicotine Cravings Last Admin: 12/07/22 23:29 Dose: 4 mg Thiamine HCl (Thiamine Hcl 100 Mg Tablet) 100 mg PO DAILY [facility] Last Admin: 12/13/22 09:19 Dose: 100 mg Allergies Allergies Allergy/AdvReac Type Severity Reaction Status Date / Time fish derived [FISH] Allergy Intermediate SWOLLEN Unverified 04/30/20 16:57 LIPS,ITCHY EYES quetiapine [Seroquel] Allergy Unknown Verified 02/18/19 00:00 fish Allergy Unknown Uncoded 02/18/19 00:00 Assessment & Plan Assessment & Plan (1) Polysubstance use disorder: Status: Acute Code(s): F19.90 - Other psychoactive substance use, unspecified, uncomplicated (2) Depressive disorder: Status: Acute Code(s): F32.A - Depression, unspecified Plan 12/08: start haldol 5 mg BID with PRN dosing available. start clonidine 0.1 TID. 12/09: increase HS clonidine to 0.2 mg for sleep. encouraged to use PRN haldol dosing. 12/10: increase HS clonidine to 0.3 mg for sleep. encouraged to use PRN haldol dosing. 12/11: increase haldol to 5 TID. start trazodone 100. c/o AH, flashes, insomnia with multiple MNA. 12/12: sleep better but not great. AH seem more trauma-related than psychotic. advance mgmt of anxiety: clonidine 0.3 mg HS increased to 0.4 mg HS, clonidine 0.1 mg BID increased to 0.2 mg BID. 12/13: disturbing dreams. DC trazodone, start remeron 30 with 15 PRN. denies sedation or Sx of hypoperfusion. BP regularly high. increase clonidine from 0.2/0.2/0.4 to 0.3/0.3/0.5. planning for discharge. Reason for continued inpatient stay Substantial Risk for: inability to function and rapid decompensation Time Spent With Patient Time: Total time managing care of this patient today ____ minutes.
[2022-12-13 17:40] LABS: Glucose, Whole Blood 192 mg/dL (60-115)
[2022-12-13] MEDS: guaiFENesin LA 600 MG TAB.ER.12H PO (17:47)
[2022-12-13 19:56] LABS: Glucose, Whole Blood 226 mg/dL (60-115)
[2022-12-13 20:15] VITALS: BP 129/85; PULSE 78; RESP 16; TEMP 36.3; O2SAT 99
[2022-12-13] MEDS: cloNIDine HCL 0.1 MG TABLET 0.5 MG PO (21:06)
[2022-12-13] MEDS: Mirtazapine 30 MG TABLET PO (21:08)
[2022-12-14 07:55] LABS: Glucose, Whole Blood 187 mg/dL (60-115)
[2022-12-14] MEDS: cloNIDine HCL 0.1 MG TABLET 0.3 MG PO ×2 (08:09→14:43)
[2022-12-14] MEDS: methADONE HCl 20 MG/2 ML ORAL.CONC 70 MG PO (08:10)
[2022-12-14] MEDS: metFORMIN HCl ER 500 MG TAB.ER.24H 1000 MG PO (08:10)
[2022-12-14] MEDS: HaloperidoL 5 MG TABLET PO ×4 (08:10→21:02)
[2022-12-14] MEDS: Folic Acid 1 MG TABLET PO (08:10)
[2022-12-14] MEDS: Multivitamin TABLET 1 TAB PO (08:10)
[2022-12-14] MEDS: Nicotine 21 MG PATCH.TD24 TRANSDERMA (08:10)
[2022-12-14] MEDS: Insulin Lispro 100 UNIT/ML 3 ML VIAL SUBCUT ×3 (08:10→21:04)
[2022-12-14] MEDS: Thiamine HCL 100 MG TABLET PO (08:10)
[2022-12-14] MEDS: Insulin Glargine,Hum.rec.anlog 100 UNIT/ML 10 ML VIAL 21 UNIT SUBCUT ×2 (08:11→21:03)
[2022-12-14 10:14] VITALS: BP 105/77; PULSE 62; RESP 18; TEMP 36.5; O2SAT 98
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
[2022-12-14] MEDS: Albuterol Sulfate 90 MCG 8 GM INHALER 2 PUFF INHALE ×2 (11:45→16:51)
[2022-12-14 12:08] LABS: Glucose, Whole Blood 134 mg/dL (60-115)
[2022-12-14 17:10] LABS: Glucose, Whole Blood 239 mg/dL (60-115)
[2022-12-14 19:45] VITALS: BP 145/88; PULSE 68; RESP 16; TEMP 36.6; O2SAT 100
[2022-12-14 20:06] LABS: Glucose, Whole Blood 220 mg/dL (60-115)
[2022-12-14] MEDS: Mirtazapine 15 MG TABLET 45 MG PO (21:02)
[2022-12-14] MEDS: cloNIDine HCL 0.1 MG TABLET 0.5 MG PO (21:03)
[2022-12-15 08:36] LABS: Glucose, Whole Blood 204 mg/dL (60-115)
[2022-12-15] MEDS: Multivitamin TABLET 1 TAB PO (08:47)
[2022-12-15] MEDS: Folic Acid 1 MG TABLET PO (08:47)
[2022-12-15] MEDS: HaloperidoL 5 MG TABLET PO (08:47)
[2022-12-15] MEDS: cloNIDine HCL 0.1 MG TABLET 0.3 MG PO (08:47)
[2022-12-15] MEDS: metFORMIN HCl ER 500 MG TAB.ER.24H 1000 MG PO (08:48)
[2022-12-15] MEDS: Thiamine HCL 100 MG TABLET PO (08:48)
[2022-12-15] MEDS: Insulin Glargine,Hum.rec.anlog 100 UNIT/ML 10 ML VIAL 21 UNIT SUBCUT (08:49)
[2022-12-15] MEDS: Insulin Lispro 100 UNIT/ML 3 ML VIAL SUBCUT (08:49)
[2022-12-15] MEDS: methADONE HCl 20 MG/2 ML ORAL.CONC 70 MG PO (08:50)
[2022-12-15] MEDS: Nicotine 21 MG PATCH.TD24 TRANSDERMA (08:51)
[2022-12-15 11:06] VITALS: BP 112/84; PULSE 75; RESP 18; TEMP 36.3; O2SAT 99
== END 2022-12-15 11:15 | disposition home or self-care (01) | DRG 751 ==
PROVIDERS: Physician Assistant; Psychiatry & Neurology Psychiatry; Admitting Provider Psychiatry & Neurology Psychiatry; PCP Internal Medicine; Visit Provider Psychiatry & Neurology Psychiatry
DX: F33.9 Major depressive disorder, recurrent, unspecified (principal); R45.851 Suicidal ideations; F11.20 Opioid dependence, uncomplicated; F17.210 Nicotine dependence, cigarettes, uncomplicated; F43.12 Post-traumatic stress disorder, chronic; F19.10 Other psychoactive substance abuse, uncomplicated; G43.909 Migraine, unspecified, not intractable, without status migrainosus; I10 Essential (primary) hypertension; Z20.822 Contact with and (suspected) exposure to COVID-19; Z71.6 Tobacco abuse counseling; Z79.899 Other long term (current) drug therapy
CPT/HCPCS: 36415; 71045; 80053; 82947; 87633